=== PATIENT | male | born 1960 | race Hispanic/Latino ===

== ENCOUNTER 2018-01-25 07:41 | Outpatient (CLI) | payer OTHER ==
--- NOTE | 2018-01-25 12:34 | MRI ---
MR LEFT ARM WITH AND WITHOUT CONTRAST: INDICATIONS: History of left arm pain for several years. 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 COMPARISON: No radiographic or MR comparisons are available. TECHNIQUE: Multiplanar, multisequence MR images were obtained of the left arm, with and without contrast, and 20 mL of MultiHance was utilized for the examination. FINDINGS: Motion artifact limits image detail. No definite abnormal signal intensity or enhancement is seen in volving the musculature of the left arm. There is susceptibility artifact seen near the region of th e elbow, likely related to vascular clips from the patient's amputation site. The left elbow and the residual proximal left forearm is not well seen due to being on the margin of the field of view, as well as with the susceptibility and motion artifact. No definite bone marrow signal abnormality is s een involving the left humerus. No abnormal enhancement is seen involving the left humerus. IMPRESSION: No abnormal signal intensity or enhancement involving the musculature of the left arm or the left hum erus. POS: [facility]
== END 2018-01-25 07:42 | disposition home or self-care (01) ==
LOC: MRI 07:41 → TBSIIMAG 07:42
PROVIDERS: ATTEND Neurological Surgery
DX: M79.602 Pain in left arm (principal)

== ENCOUNTER 2018-03-03 08:14 | Outpatient (CLI) | payer OTHER ==
[2018-03-03 08:47] LABS: Estimated GFR-MDRD - POC Greater than 90
--- NOTE | 2018-03-03 11:35 | MRI ---
MRI LEFT ELBOW WITH AND WITHOUT IV CONTRAST: 03/03/2018 PROVIDED CLINICAL HISTORY: Stump pain, status post left arm amputation six years ago. FINDINGS: Changes of amputation of the left upper extremity, at the proximal forearm, are demonstrated. There is fusion of the proximal radius and ulna. There is bulbous enlargement of the distal aspects of the median and ulnar nerves, at the terminal as pect of the stump. The median nerve measures at least 14 mm in transverse dimension, distally. The ulnar nerve measures at least 15 mm in transverse dimension, distally. There is heterogeneous signal intensity on fluid sensitive sequences, involving the distal aspects of both median and ulnar nerves . There is patchy signal alteration on fluid sensitive sequences, involving the pronator teres and the proximal remaining common flexor musculature. There is similar signal alteration involving the brach ioradialis muscle and the remaining proximal common extensor musculature. No joint effusion is evident. Regional marrow signal appears normal. IMPRESSION: 1. 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 2. Patchy signal alteration on fluid sensitive sequences involving the musculature about the elbow, as described above. Findings presumably reflect changes related to denervation. Nonspecific myositi s could also be considered. POS: [facility]
== END 2018-03-03 08:15 | disposition home or self-care (01) ==
LOC: TBSIIMAG 08:14
PROVIDERS: ATTEND Neurological Surgery
DX: T87.32 Neuroma of amputation stump, left upper extremity (principal)
CPT/HCPCS: 82565